=== PATIENT | female | born 1985 | race Caucasian/White ===

== ENCOUNTER 2016-06-29 07:48 | Emergency (ER) | payer OTHER, BC ==
[~2016-06-29] VITALS: Ht 165.1 cm; Wt 86.2 kg
[~2016-06-29 07:48] MED LIST: AUGMENTIN 500-1 EACH PO; FLONASE 0.05%50 MCG
[2016-06-29] MEDS ORDERED: AUGMENTIN 875-1 EACH PO (08:13)
[2016-06-29 09:01] VITALS: BP 128/84
== END 2016-06-29 09:02 | disposition home or self-care (01) ==
LOC: ER 07:48
DX: S01.85XA Open bite of other part of head, initial encounter (principal); S01.511A Laceration without foreign body of lip, initial encounter; F10.99 Alcohol use, unspecified with unspecified alcohol-induced disorder; W54.0XXA Bitten by dog, initial encounter; Y93.89 Activity, other specified; Y92.89 Other specified places as the place of occurrence of the external cause; Y99.8 Other external cause status